=== PATIENT | female | born 2000 | race Asian ===

== ENCOUNTER 2024-02-19 10:55 | Emergency (ER) | payer OTHER, BC, SELFPAY ==
[2024-02-19 11:09] VITALS: BP 146/83; PULSE 76; RESP 20; TEMP 36.8; O2SAT 99; BMI 25.1
--- OUTSIDE RECORDS SUMMARY | 2024-02-19 12:02 | XMS_ITS | Encounter Summary ---
Author Name Unknown Organization [facility] Address [address] [place] [address] Care Team Providers Care Web Database Developer Name Role Phone Gabriella Powers M.D. Primary Care Provider [phone] Reason for Visit * Reason Comments Med Refill Encounter Details Date Type Department Care Team (Late st Contact Info) Description 01/14/2024 Refill [facility] Department of Family Medicine in [place], [place] [address] [place] [address] Gabriella Powers M.D. [address] [place] [address] Med Refill Social History Tobacco Use Types Packs/Day Years Used Date Smoking Tobacco: Never Smokeless Tobacco: Never Alcohol Use Standard Drinks/Week Comments Not Currently 0 (1 standard drink = 0.6 oz pur e alcohol) Humiliation, Afraid, Rape, and Kick questionnair e Answer Date Recorded Within the last year, have y ou been afraid of your partner or ex-partner? No 08/18/2022 Within the last year, have y ou been humiliated or emotionally abused in other ways by your partner or ex-partner? No Within the last year, have y ou been kicked, hit, slapped, or otherwise physically hurt by your partner or ex-partner? No 08/18/2022 Within the last year, have y ou been raped or forced to have any kind of sexual activity by your partner or ex-partner? No 08/18/2022 Social Connection and Isolat ion Panel [NHANES] Answer Date Recorded In a typical week, how many times do you talk on the phone with family, friends, or neighbors? More than three times a week 08/18/2022 How often do you get togethe r with friends or relatives? Twice a week 08/18/2022 How often do you attend chur or buddhism services? Never 08/18/2022 Do you belong to any clubs o r organizations such as gnosticist groups, unions, fraternal or athletic groups, or school groups? No 08/18/2022 How often do you attend meet ings of the clubs or organizations you belong to? Never 08/18/2022 Are you , , di vorced, , never , or living with a partner? Living with partner 08/18/2022 AUDIT-C Answer Date Recorded Q1: How often do you have a drink containing alc ohol? 2-3 times a week 08/18/2022 Q2: How many drinks containi ng alcohol do you have on a typical day when you are drinking? 1 or 2 08/18/2022 Q3: How often do you have si x or more drinks on one occasion? Never 08/18/2022 Overall Financial Resource Strain (CARDIA) Answe r Date Recorded How hard is it for you to pa y for the very basics like food, housing, medical care, and heating? Not very hard 10/01/2023 PHQ-2 Answer Date Recorded PHQ-2 Score 2 01/01/2024 [facility] - Occupational Stress Questionnaire Answer Date Recorded Do you feel stress - tense, restless, nervous, or anxious, or unable to sleep at night because your mind is troubled all the time - these days? Very much 08/18/2022 Exercise Vital Sign Answer Date Recorde d On average, how many days pe r week do you engage in moderate to strenuous exercise (like a brisk walk)? 4 days 10/01/2023 On average, how many minutes do you engage in exercise at this level? 30 min 10/01/2023 Hunger Vital Sign Answer Date Recorded Within the past 12 months, y ou worried that your food would run out before you got the money to buy more. Never true 10/01/20 23 Within the past 12 months, t he food you bought just didn't last and you didn't have money to get more. Never true 10/01/2023 PRAPARE - Transportation Answer Date Re corded In the past 12 months, has l ack of transportation kept you from medical appointments or from getting medications? No 09/21 In the past 12 months, has l ack of transportation kept you from meetings, work, or from getting things needed for daily living? No 10/01/2023 Depression Answer Date Recor ded PHQ-9 Total Score (max 27) 7 12/31 Nutrition Answer Date Recorded On average, how many serving s of fruits and vegetables do you eat per day (serving size is equal to 1 cup or approximately the size of a tennis ball)? 3-5 10/01/2023 Dental Answer Date Recorded Dental: Regular Dentist Yes 01/20/20 Employment Answer Date Recorded Employment status Employed and actively working without restrictions 10/01/2023 Housing Stability Answer Date Recorded What is your living situation today? I have a [facility] place to live 10/01/2023 Education Answer Date Recorded What is the highest level of school you have completed or the highest degree you have received? Some college, no degree 01/19/2022 Sex and Gender Information Value Date Recorded Sex Assigned at Female 08/18/2022 11:21 AM CDT Gender Identity Female 08/18/2022 11:21 AM CDT Sexual Orientation Straight 08/18/2022 11 :21 AM CDT documented as of this encounter Miscellaneous Notes * Telephone Encounter - Milagro Zambrano L.P.N. - 01/15/2024 3:28 PM CDT Recent Visits Date Type Provider Dept 01/02/24 Comprehensive Visit Gabriella Powers M.D. [facility] [place] Showing recent visits within past 365 days with a meds authorizing provider and meeting all other requirements Future Appointments No visits were found meeting these conditions. Showing future appointments within next 90 days with a meds authorizing provider and meeting all other requirements documented in this encounter Plan of Treatment Upcoming Encounters Date Type Department Care Team (Latest Contact Info) Description 04/22/2024 9:00 AM CDT Comprehensive Visit Department of Allergy in [place], [place] [address] [place] [phone] Andrés Camacho M.D. [address] [place] [address] Discharge Disposition: Home or Self Care documented as of this encounter Visit Diagnoses Diagnosis Acne documented in this encounter Additional Health Concerns Assessment Noted Time PHQ-9 Depression Total Score: 7 01/01/20 24 1:55 AM CDT documented as of this encounter Care Teams Web Database Developer Relationship Specialty Start Date End Date Gabriella Powers M.D. [address] [place] [address] PCP - General Family Medicine 08/21/22 documented as of this encounter
--- OUTSIDE RECORDS SUMMARY | 2024-02-19 12:02 | XMS_ITS ---
Author Name Unknown Organization [facility] Address [address] [place] [address] Care Team Providers Care Supervisor Engraving Name Role Phone Unavailable Unavailable Unavailable Surgery Details Not on file Complications Check Surgery Details section. Procedure Estimated Blood Loss Check Surgery Details section. Procedure Findings Check Surgery Details section. Procedure Specimens Taken Check Surgery Details section.
--- OUTSIDE RECORDS SUMMARY | 2024-02-19 12:02 | XMS_ITS | Encounter Summary ---
Author Name Unknown Organization [facility] Address [address] [place] [address] Care Team Providers Care Exposure Machine Operator Name Role Phone Gabriella Powers M.D. Primary Care Provider [phone] Encounter Details Date Type Department Care Team (Late st Contact Info) Description 12/18/2023 Patient Self-Triage [facility] Symptom Black Pickler, Provider Social History Tobacco Use Types Packs/Day Years [...] 08/18/2022 How often do you attend chur ch or baptist services? Never 08/18/2022 Do you belong to any clubs o r organizations such as baptism groups, unions, fraternal or athletic groups, or [...] 10/01/2023 PHQ-2 Answer Date Recorded PHQ-2 Score 1 11/29/2023 [facility] - Occupational Stress [...] Recor ded PHQ-9 Total Score (max 27) 5 11/29 Nutrition Answer Date Recorded On average, how [...] your living situation today? I have a [facility] place to live 10/01/2023 Education [...] AM CDT documented as of this encounter Plan of Treatment Upcoming Encounters Date Type Department Care Team (Latest Contact Info) Description 04/22/2024 9:00 AM CDT Comprehensive Visit Department of Allergy in [place] [address] [place] [address] Andrés Camacho M.D. [facility] [place] [address] Discharge Disposition: Home or Self Care documented as of this encounter Visit Diagnoses Not on filedocumented in this encounter Additional Health Concerns Assessment Noted Time PHQ-9 Depression Total Score: 5 11/29/19 24 7:55 AM FAN MAIL EDITOR documented as of this encounter Care Teams Exposure Machine Operator Relationship Specialty Start Date End Date Gabriella Powers M.D. ELIZABETHI: [phone] [address] [place] [address] PCP - General Family Medicine 08/21/22 documented as of this encounter
--- OUTSIDE RECORDS SUMMARY | 2024-02-19 12:02 | XMS_ITS | Encounter Summary ---
Author Name Unknown Organization [facility] Address [address] [place] [address] Care Team Providers Care Screenplay Writer Name Role Phone Gabriella Powers M.D. Primary Care Provider [phone] Encounter Details Date Type Department Care Team (Late st Contact Info) Description 12/18/2023 Patient Self-Triage CONNECTED CARE Symptom Duct Installer, Provider Social History Tobacco Use Types Packs/Day [...] often do you attend chur ch or shinto services? Never 08/18/2022 Do you belong to any clubs o r organizations such as adventism groups, unions, fraternal or athletic groups, or [...] Answer Date Recorded PHQ-2 Score 1 11/29/2023 [facility] - Occupational Stress [...] your living situation today? I have a [facility] place to live 10/01/2023 Education Answer [...] CDT Comprehensive Visit Department of Allergy in [place] [id number] [place] [address] Andrés Camacho M.D. [facility] [place] [address] Discharge Disposition: Home or Self Care documented as of this encounter Visit Diagnoses Not on filedocumented in this encounter Additional Health Concerns Assessment Noted Time PHQ-9 Depression Total Score: 5 11/29/19 24 7:55 AM CONSTRUCTION SUPERVISOR documented as of this encounter Care Teams Screenplay Writer Relationship Specialty Start Date End Date Gabriella Powers M.D. ELIZABETHI: [phone] [address] [place] [address] PCP - General Family Medicine 08/21/22 documented as of this encounter
--- OUTSIDE RECORDS SUMMARY | 2024-02-19 12:02 | XMS_ITS | Encounter Summary ---
Author Name Unknown Organization [facility] Address [address] [place] [address] Care Team Providers Care Lay Out Technician Name Role Phone Gabriella Powers M.D. Primary Care Provider Reason for Referral * Outpatient (Routine) - Authorized Specialty Diagnoses / Procedures Referred By Sylvie t Referred To Contact Dermatology Diagnoses Quita Tran APRN C.N.P., M.S.N. [address] [place] [phone] [facility] Referral ID Status Reason Start Date Expiration Date Visits Requested Visits Authorized [id number] Authorized Specialty Services Required 02/18/2024 08/19/2025 1 1 Reason for Visit * Reason Comments Gynecologic Exam Encounter Details Date Type Department Care Team (Latest Contact Info) Description 02/18/2024 1:30 PM CDT Office Visit Department of Obstetrics and Gynecology in [place], [place] [address] [place] [phone] Quiat Junior APRN, C.N.P., M.S.N. [address] [place] [phone] Preventive Gynecological Exam (Primary Dx); Screening For Venereal Disease; Acne Discharge Disposition: Home or Self Care Social History Tobacco Use Types Packs/Day Years [...] often do you attend chur ch or pentecostal services? Never 08/18/2022 Do you belong to any clubs o r organizations such as yazidi groups, unions, fraternal or athletic groups, or [...] Answer Date Recorded PHQ-2 Score 2 01/01/2024 [facility] - [...] your living situation today? I have a [facility] [place] place to live 10/01/2023 Education Answer Date [...] AM CDT documented as of this encounter Last Filed Vital Signs Vital Sign Reading Time Taken Comments Blood Pressure 118/62 02/18/2024 1:23 PM CDT Pulse - - Temperature - - Respiratory Rate - - Oxygen Saturation - - Inhaled Oxygen Concentration - - Weight 62.1 kg (136 lb 14.5 oz) 02/18/2024 1:23 PM CDT Height - - Body Mass Index 24.56 08/18/2022 11:13 AM CDT documented in this encounter Progress Notes * Quita Junior, JOE, C.N.P., M.S.N. - 02/18/2024 1:30 PM CDT SUBJECTIVE CHIEF COMPLAINT / REASON FOR VISIT Annual BUSINESS ACCOUNT MANAGER exam HISTORY OF PRESENT ILLNESS Radha Boyle is a 23 y.o. female here for an annual BUSINESS ACCOUNT MANAGER exam. Desires preventative health screening labs to be completed. She is using [facility] pills for contraceptive management and this is going well. Cycles are monthly and regular. She also is using the pill for acne control. It has been helpful but her acne is not controlled as best as she would like. She is open to a referral to Dermatology for further evaluation and management. Her pap smear is up to date and due 11/2024 She desires STD screening today. Asymptomatic. 1 partner within the past 12 months. Higher risk sexual behavior rico in 2021. Approximately 30 lifetime partners. Obstetrical History OB History Para Term AB Living 0 0 0 0 0 0 SAB IAB Ectopic Molar Multiple Live Births 0 0 0 0 0 0 Past Medical History: Diagnosis Date Acne Anxiety Generalized Disorder Asthma Mild Intermittent (HCC) Bipolar Disorder (HCC) Diagnosis from Teresa Olsen at [facility] Depressive Disorder History reviewed. No pertinent surgical history. Family History Problem Relation Name Age of Onset Tobacco abuse Father Hypertension Mother Kiran Jean Prediabetes Mother Kiran Jean Asthma Brother Paulo Boyle Social History Socioeconomic History Marital status: Single Highest education level: Some college, no degree Tobacco Use Smoking status: Never Smokeless tobacco: Never Vaping Use Vaping status: never used Substance and Sexual Activity Alcohol use: Not Currently Drug use: Not Currently Types: Marijuana Sexual activity: Yes Partners: Male control/protection: Condom, Pill Social Determinants of Health Food Insecurity: No Food Insecurity (10/01/2023) Hunger Vital Sign Worried About Running Out of Food in the Last Year: Never true Ran Out of Food in the Last Year: Never true Transportation Needs: No Transportation Needs (10/01/2023) PRAPARE - Transportation Lack of Transportation (Medical): No Lack of Transportation (Non-Medical): No Physical Activity: Insufficiently Active (10/01/2023) Exercise Vital Sign Days of Exercise per Week: 4 days Minutes of Exercise per Session: 30 min Intimate Partner Violence: Not At Risk (08/18/2022) Humiliation, Afraid, Rape, and Kick questionnaire Fear of Current or Ex-Partner: No Emotionally Abused: No Physically Abused: No Sexually Abused: No Housing Stability: Low Risk (10/01/2023) Housing Stability Housing: Living Situation: I have a steady place to live Medication and allergy list reviewed. Please click this encounter's hyperlink for reference REVIEW OF SYSTEMS Pertinent negatives and positives as noted in the HPI REVIEW OF SYSTEMS OBJECTIVE VITAL SIGNS Vitals: 02/18/24 1323 BP: 118/62 HT: -Wt 62.1 kg Body mass index is 24.56 kg/m??. PHYSICAL EXAM General: Patient???s eye contact is appropriate, physical appearance is neat, clean and dress is appropriate Breasts and Axillae: Breasts symmetric, no retractions, lesions, masses, tenderness. No nipple discharge noted. Axilla is negative Genitourinary: External genitalia clear of any lesions or swelling. Urethra without redness or swelling. Clitoris without clitoromegaly. Bartholin and Jeddo's glands nontender and nonpalpable. External rectal mucosa is appropriately colored with no lesions or masses. Speculum exam reveals mildly thicker white vaginal discharge in the vault. Cervix is normal and without lesions or erythema. On bimanual exam, uterus is small, round, mobile. No cervical motion tenderness or adnexal tenderness. Bladder is nontender Neurologic: Patient is alert and orientated x 3. Cranial nerves are grossly intact Senior Hadoop Developer for pelvic exam or qualifying procedure: Adelina Truong ASSESSMENT / PLAN Diagnosis Plan 1. Preventive Gynecological Exam Hemoglobin A1c Lipid Panel CBC with Differential, Blood 2. Screening For Venereal Disease Chlamydia / Gonorrhoeae Amplified RNA Syphilis Total Antibody with Reflex, Serum HIV-1/-2 Ag and Ab Screen, Plasma HCV Ab Scrn w/Reflex to HCV PCR, Serum 3. Acne Dermatology - General consult (clinic) norgestimate-ethinyl estradioL (Ortho Tri-Cyclen, 28,) 0.18 mg/0.215 mg/0.25 mg- 35 mcg (28) per tablet PATIENT EDUCATION Ready to learn, barriers to learning: none; learning preferences include listening. Overall, patient verbalizes understanding of the plan of care and offers no further questions or concerns Quita Junior APRN, C.N.Tirso., M.S.N. documented in this encounter Plan of Treatment Upcoming Encounters Date Type Department Care Team (Latest Contact Info) Description 04/22/2024 9:00 AM CDT Comprehensive Visit Department of Allergy in [address] [phone] Andrés Camacho M.D. [address] [place] [phone] Discharge Disposition: Home or Self Care Scheduled Referrals Name Type Priority Associated Diagnoses Order Schedule Dermatology - General consult (clinic) Outpatient Referral Routine Acne Expected: 02/18/2024, Expires: 05/19/2025 documented as of this encounter Procedures Procedure Name Priority Date/Time Associated Diagnosis Comments CBC WITH DIFFERENTIAL, B Routine 02/18/2024 2:14 PM CDT Preventive Gynecological Exam CHLAMYDIA/GONORRHO EAE AMPLIFIED RNA Routine 02/18/2024 1:57 PM CDT Screening For Venereal Disease documented in this encounter Results * (ABNORMAL) CBC with Differential, Blood (02/18/2024 2:14 PM CDT) Hemoglobin 15.1(H) 11.6 - 15.0 g/dL 02/18/2024 2:22 PM CDT [facility] Hematocrit 44.9 35.5 - 44.9 % 02/18/2024 2:22 PM CDT [facility] Erythrocytes 5.25(H) 3.92 - 5.13 x10(12)/L 02/18/2024 2:22 PM CDT [facility] MCV 85.5 78.2 - 97.9 fL 02/18/2024 2:22 PM CDT [facility] RBC Distrib Width 12.1(L) 12.2 - 16.1 % 02/18/2024 2:22 PM CDT [facility] Platelet Count 326 157 - 371 x10(9)/L 02/18/2024 2:22 PM CDT [facility] Leukocytes 8.3 3.4 - 9.6 x10(9)/L 02/18/2024 2:22 PM CDT [facility] Neutrophils 4.93 1.56 - 6.45 x10(9)/L 02/18/2024 2:22 PM CDT [facility] Lymphocytes 2.66 0.95 - 3.07 x10(9)/L 02/18/2024 2:22 PM CDT [facility] Monocytes 0.43 0.26 - 0.81 x10(9)/L 02/18/2024 2:22 PM CDT [facility] Eosinophils 0.20 0.03 - 0.48 x10(9)/L 02/18/2024 2:22 PM CDT [facility] Basophils 0.06 0.01 - 0.08 x10(9)/L 02/18/2024 2:22 PM CDT [facility] Blood (Blood, Venous) 02/18/2024 2:14 PM CDT 02/18/2024 2:18 PM CDT Quita Junior APRN, C.N.P., M.S.N. LAB BLO OD ADD-ON [facility] [address] [place] [address], [facility] MKTO [facility] in [place] [address] [place] [phone] * (ABNORMAL) Lipid Panel (02/18/2024 2:14 PM CDT) Triglycerides 160(H) mg/dL 02/18/2024 2:38 PM CDT [facility] Comment: ----REFERENCE VALUE---- Normal: <150 mg/dL Borderline High: 150-199 mg/dL High: 200-499 mg/dL Very High: > or =500 mg/dL Cholesterol, Total 169 mg/dL 2023 2:38 PM CDT [facility] Comment: ----REFERENCE VALUE---- Desirable: < 200 mg/dL Borderline High: 200 - 239 mg/dL High: > or = 240 mg/dL Cholesterol, LDL, Calculated 67 mg/dL 02/18/2024 2:38 PM CDT [facility] Comment: ----REFERENCE VALUE---- Desirable: <100 mg/dL Above Desirable: 100-129 mg/dL Borderline High: 130-159 mg/dL High: 160-189 mg/dL Very High: >=190 mg/dL ----ADDITIONAL INFORMATION---- LDL cholesterol calculated using the [place]/NIH equation. Cholesterol, HDL 76 >=50 mg/dL 02/18/20 2:38 PM CDT MKTO Cholesterol, Non-HDL, Calculated 93 mg/dL 02/18/2024 2:38 PM CDT [facility] Comment: ----REFERENCE VALUE---- Desirable: <130 mg/dL Above Desirable: 130-159 mg/dL Borderline High: 160-189 mg/dL High: 190-219 mg/dL Very High: > or =220 mg/dL Fasting (8 HR or more) No 02/18/2024 2:18 PM CDT [facility] Blood (Blood, Venous) 02/18/2024 2:14 PM CDT 02/18/2024 2:18 PM CDT Quita Junior APRN, C.N.P., M.S.N. LAB BLO OD ADD-ON [facility] [address] [place] [address], [facility] MKTO [facility] [place] [address] [place] [address] * Hemoglobin A1c (02/18/2024 2:14 PM CDT) Hemoglobin A1c, B 4.9 4.2 - 5.6 % 02/18/2024 2:34 PM CDT MKTO Blood (Blood, Venous) 02/18/2024 2:14 PM CDT 02/18/2024 2:18 PM CDT Quita Junior APRN, C.N.P., M.S.N. LAB BLO OD ADD-ON Performing Organization Address City/[facility]/ZIP Co de Phone Number [facility] [address] [place] [address], [place] [address] * HCV Ab Scrn w/Reflex to HCV PCR, Serum (02/18/2024 2:14 PM CDT) HCV Ab Screen, S Negative Negative 02/18/2024 5:46 PM CDT MKTO Blood (Blood, Venous) 02/18/2024 2:14 PM CDT 02/18/2024 2:18 PM CDT Narrative [facility] - 02/18/2024 5:46 PM CDT Specimen Information: Specimen ID: [id number] Specimen Type: Blood Specimen Collection Start Date: 02/18/2024 ??2:14 PM Specimen Received Date: 02/18/2024 ??2:18 PM Specimen ID: [id number] Specimen Type: Blood Specimen Collection Start Date: 02/18/2024 ??2:14 PM Specimen Received Date: 02/18/2024 ??2:18 PM Yani Coulter APRNNEddieP., M.S.N. LAB [facility] - BLOOD ORDERABLES Performing Organization Address City/[facility]/ZIP Co de Phone Number [facility] [address] [place] [address], [place] [address] * HIV-1/-2 Ag and Ab Screen, Plasma (02/18/2024 2:14 PM CDT) HIV Ag/Ab Screen, P Negative Negative 02/18/2024 9:08 PM CDT [facility] Comment: Negative result does not rule out HIV infection. If exposure to HIV infection occurred <14 days ago, contact the laboratory to request addition of HIV-1/HIV-2 RNA detection, Plasma (HIP12). HIV-1 p24 Ag Screen, P Negative Negative 02/18/2024 9:08 PM CDT [facility] Comment: Negative result does not rule out HIV infection. If exposure to HIV infection occurred <14 days ago, contact the laboratory to request addition of HIV-1/HIV-2 RNA detection, Plasma (HIP12). HIV-1 Ab Screen, P Negative Negative 02/18/2024 9:08 PM CDT [facility] Comment: Negative result does not rule out HIV infection. If exposure to HIV infection occurred <14 days ago, contact the laboratory to request addition of HIV-1/HIV-2 RNA detection, Plasma (HIP12). HIV-2 Ab Screen, P Negative Negative 02/18/2024 9:08 PM CDT [facility] Comment: Negative result does not rule out HIV infection. If exposure to HIV infection occurred <14 days ago, contact the laboratory to request addition of HIV-1/HIV-2 RNA detection, Plasma (HIP12). Blood (Blood, Venous) 02/18/2024 2:14 PM CDT 02/18/2024 6:17 PM CDT Quita Junior APRN, C.N.P., M.S.N. LAB [facility] - BLOOD ORDERABLES [facility] [address] [place] [phone], [facility] in [address] [address] * Syphilis Total Antibody with Reflex, Serum (02/18/2024 2:14 PM CDT) Syphilis Total Ab w/ Reflex Nonreactive Nonreactive 02/18/2024 9:08 PM CDT [facility] Comment: No serologic evidence of infection with T. pallidum (syphilis). ??Repeat testing may be considered in patients with suspected acute or primary syphilis in 2-4 weeks. For additional information on interpretation of the syphilis reverse algorithm and results, see: [email or web address] Blood (Blood, Venous) 02/18/2024 2:14 PM CDT 02/18/2024 6:17 PM CDT Quita Junior APRN, C.N.P., M.S.N. LAB BLO OD ADD-ON Performing Organization Address [facility] Co de Phone Number [facility] [address] [place] [phone], [facility] [place] [address] * Chlamydia / Gonorrhoeae Amplified RNA (02/18/2024 1:57 PM CDT) Source Swab, Vagina 02/18/2024 10:48 PM CDT [facility] Chlamydia trachomatis amplified RNA Negative Negative 02/18/2024 10:48 PM CDT MK[facility] Source Swab, Vagina 02/18/2024 10:48 PM CDT [facility] Neisseria gonorrhoeae amplified RNA Negative Negative 02/18/2024 10:48 PM CDT [facility] Swab (Vagina) 02/18/2024 1:5 7 PM CDT 02/18/2024 2:30 PM CDT Jazimn oCulter APRN.N.P., M.S.N. LAB [facility] - GENERAL ORDERABLES Performing Organization Address [facility]/ZIP Co de Phone Number [facility] [address] [place] [phone], [place] MKTO [address] [place] [phone] documented in this encounter Visit Diagnoses Diagnosis Preventive Gynecological Exam- Primary Screening For Venereal Disease Acne Screening For Venereal Disease Preventive Gynecological Exam documented in this encounter Additional Health Concerns Assessment Noted Time PHQ-9 Depression Total Score: 7 01/01/20 24 1:55 AM CDT documented as of this encounter Care Teams Lay Out Technician Relationship Specialty Start Date End Date Gabriella Powers M.D. NPNgoc: [phone] [address] [place] [phone] PCP - General Family Medicine 08/21/22 documented as of this encounter
--- OUTSIDE RECORDS SUMMARY | 2024-02-19 12:02 | XMS_ITS | Referral Summary ---
Author Name Unknown Organization [facility] Address [address] [place] [address] Care Team Providers Care Office Inspector Name Role Phone Gabriella Powers M.D. Primary Care Provider [phone] Source Comments Patient records contain information from all sites at [facility]. For routine questions regarding patient records, call [phone] during business hours, M-F 8:00 AM - 5:00 PM Central Time. Record requests for emergency care only can be directed to [phone] at any time.[facility] Encounters Date Type Department Care Team Description 02/18/2024 2:06 PM CDT - 02/18/2024 11:59 PM CDT Hospital Encounter Department of Laboratory Medicine in [address] [phone] Quita Junior APRN, C.N.P., M.S.N. Screening For Venereal Disease; Preventive Gynecological Exam Discharge Disposition: Home or Self Care 02/18/2024 1:30 PM CDT Office Visit Department of Obstetrics and Gynecology in [address] [phone] Quita Junior APRN, C.N.P., M.S.N. Preventive Gynecological Exam (Primary Dx); Screening For Venereal Disease; Acne Discharge Disposition: Home or Self Care 01/14/2024 Refill [facility] in [place], [place] [address] [place] [address] Gabriella Powers M.D. Med Refill 01/11/2024 8:00 AM CDT Telemedicine [facility] at [facility] in [place], [place] [address] [place] [address] Sharron Tran P.A.-C. Dermatitis Contact Due To Irritant (Primary Dx) 01/02/2024 8:30 AM CDT Comprehensive Visit [facility] in [place], [place] [address] [place] [address] Gabriella Powers M.D. Urticaria (Primary Dx); Encounter For COVID-19 Vaccine Immunization 12/18/2023 Patient Self-Triage [facility] Symptom Pumping Supervisor, Provider 12/18/2023 Patient Self-Triage [facility] Symptom Pumping Supervisor, Provider 12/18/2023 Patient Self-Triage [facility] Symptom Pumping Supervisor, Provider from Last 3 Months Allergies Active Allergy Reactions Criticality Noted Date Comments Chlorhexidine Rash Low 08/18/2022 Skin Protectants, Misc. Other (see comments) Medium Steri strips gets blisters Medications Medication Sig Dispensed Refills Start Date End Date Status hydrOXYzine (ATARAX) 25 mg tablet TAKE 1-2 TABLETS BY MOUTH EVERY DAY NEEDED FOR ANXIETY, PANIC 180 tablet 1 3 Active calcium carbonate-vitam in D3 (Calcium 600 + D,3,) 1,500 mg (600 mg calcium)-10 mcg (400 Unit) per tablet Take 1 tablet by mouth 2 (two) times a day with meals. 3 Active cartilage-colla mgv-zuk-oqmzri (Joint Health) 40-10-5-3.3 mg tablet Take 1 tablet by mouth daily. 3 Active mupirocin (BACTROBAN) 2 % ointment Apply 1 Application topically 2 (two) times a day. Apply to open areas on hands. 30 g 2 4 Active mometasone (ELOCON) 0.1 % ointment Apply 1 Application topically daily. Apply to itchy rash on hands prn. 45 g 1 4 Active tretinoin (RETIN-A) 0.05 % creamIndication s:Acne APPLY 1 APPLICATION TOPICALLY EVERY DAY AT BEDTIME 45 g 3 4 Active norgestimate-et hinyl estradioL (Ortho Tri-Cyclen, 28,) 0.18 mg/0.215 mg/0.25 mg-35 mcg (28) per tabletIndicatio ns:Acne Take 1 tablet by mouth daily. 84 tablet 4 4 Active norgestimate-et hinyl estradioL (Ortho Tri-Cyclen, 28,) 0.18 mg/0.215 mg/0.25 mg-35 mcg (28) per tabletIndicatio ns:Menorrhagia, Acne Take 1 tablet by mouth daily. 84 tablet 4 3 02/18/20 24 Discontinued(Reo rder) triamcinolone (KENALOG) 0.1 % cream APPLY TO AFFECTED AREA 1-2 TIMES DAILY NEEDED FOR NO LONGER THAN 2 WEEKS. AVOID FACE AND GROIN. 80 g 3 02/18/20 24 Discontinued Active Problems Problem Noted Date Diagnosed Date Mood Disorder 10/20/2022 Anxiety Generalized Disorder 04/21/2022 Resolved Problems Problem Noted Date Diagnosed Date Resolved Date Depression Major Recurrent Moderate 04/21/2022 12/13/2022 Bipolar Disorder 04/21/2022 10/20/2022 Immunizations Name Administration Dates Next Due 4vHPV (discontinued) 07/18/2012 9vHPV 12/15/2021,04/15/2020 DTaP (Infanrix, Tripedia) 12/26/2004,,2000,1999,2000 H1N1 All Forms 11/19/2009,09/06/2009 HepA Pediatric/Adolescent 11/19/2009,04/27/2008 HepB Pediatric/Adolescent 2000 HepB, Unspecified 08/14/2002,2000,05/22/20 00 Hib (PRP-T) (ACTHIB, HIBERIX) 2000, 000,2000 IPV 12/26/2004, 1,2000,1999 Influenza (IM) Preservative Free 08/06/2013 Influenza, Injectable, Mdck, Preservative Free, Quadrivalent 08/21/2021,09/20/2018 Influenza, Unspecified 08/21/2017,2011,09/05/2010,2008,09/16/2008,08/05/2007,10/03/2006,1 11/06/2005 MCV4 (Menactra)(Discontinued) 07/18/2012 MMR 12/26/2004,04/22/2001 PCV7 (discontinued) 10/28/2001,01/21/2001,2000 SARS-COV-2 (COVID-19) - MODE RNA (12 YEARS AND OLDER) [id number] 01/02/2024 SARS-COV-2 (COVID-19) - MODERNA(Discontinued) 12/09/2020,11/10/2020 SARS-COV-2 (COVID-19) - PFIZ ER BIVALENT TS(Discontinued)(12 YEARS OR OLDER) 10/19/2022 Tdap 08/18/2022,07/18/2012 RACHELLE 04/27/2008,04/22/2001 influenza vaccine quad (FLUZONE/FLUARIX) (6 months and older)(PF) 07/25/2023,07/25/2022,08/13/2015,2013 Social History Tobacco Use Types Packs/Day Years [...] How often do you attend chur or restorationism services? Never 08/18/2022 Do you belong to [...] Answer Date Recorded PHQ-2 Score 2 01/01/2024 [facility] - [...] your living situation today? I have a [facility] place to live 10/01/2023 Education Answer Date Recorded What is the highest level of school you have completed or the highest degree you have received? Some college, no degree 01/19/2022 Sex and Gender Information Value Date Recorded Sex Assigned at Female 08/18/2022 11:21 AM CDT Gender Identity Female 08/18/2022 11:21 AM CDT Sexual Orientation Straight 08/18/2022 11 :21 AM CDT Last Filed Vital Signs Vital Sign Reading Time Taken Comments Blood Pressure 118/62 02/18/2024 1:23 PM CDT Pulse 67 01/02/2024 8:25 AM CDT Temperature 36.6 ??C (97.9 ??F) 01/02/2024 8:25 AM CD T Respiratory Rate 14 10/19/2022 10:2 0 AM TORCH SHEARER Oxygen Saturation - - Inhaled Oxygen Concentration - - Weight 62.1 kg (136 lb 14.5 oz) 02/18/2024 1:23 PM CDT Height 159 cm (5' 2.6) 08/18/2022 11:1 3 AM CDT Body Mass Index 24.56 08/18/2022 11:13 AM CDT Plan of Treatment Upcoming Encounters Date Type Department Care Team (Latest Contact Info) Description 04/22/2024 9:00 AM CDT Comprehensive Visit Department of Allergy in [place], [place] [address] [place] [address] Andrés Camacho M.D. [address] [place] [address] Discharge Disposition: Home or Self Care Medical Devices Implanted Type Area Wastewater Superintendent Device Identifier Shelf Expiration Date Model / Serial / Lot Subdermal Contraceptive Implant- 2 Implanted:Qty: 1 on 11/17/2021 by Quita Junior APRN, C.N.P., M.S.N. Subdermal Contraceptive Implant Left: Arm Subdermal Contraceptive Implant- 2 Implanted:Qty: 1 on 11/17/2021 by Quita Junior APRN, C.N.P., M.S.N. Subdermal Contraceptive Implant Left: Arm [employer] 01/29/2024 / / [id number] Procedures Procedure Name Priority Date/Time Associated Diagnosis Comments LIPID PANEL, S Routine 02/18/2024 2:14 PM CDT Preventive Gynecological Exam HEMOGLOBIN A1C, B Routine 02/18/2024 2:1 4 PM CDT Preventive Gynecological Exam CBC WITH DIFFERENTIAL, B Routine 02/18/2024 2:14 PM CDT Preventive Gynecological Exam HCV AB SCRN W/REFLEX TO HCV PCR, S Routine 02/18/2024 2:14 PM CDT Screening For Venereal Disease HIV-1/-2 AG AND AB SCREEN, PLASMA Routine 02/18/2024 2:14 PM CDT Screening For Venereal Disease SYPHILIS TOTAL AB W/ REFLEX S Routine 02/18/2024 2:14 PM CDT Screening For Venereal Disease CHLAMYDIA/GONORRHOE AE AMPLIFIED RNA Routine 02/18/2024 1:57 PM CDT Screening For Venereal Disease THINPREP SCREEN HPV REFLEX Routine 12/15/2021 11:09 AM TORCH SHEARER Preventive Gynecological Exam from Last 3 Months or Most Recently Relevant to Health Maintenance Results * HIV-1/-2 Ag and Ab Screen, Plasma (02/18/2024 2:14 PM CDT) Pathologist [facility] HIV Ag/Ab Screen, P Negative Negative 02/18/2024 [...] LAB [facility]OLOG[facility] - BLOOD ORDERABLES [facility] [address] [place] [address], [facility] [address] [address] * (ABNORMAL) Lipid Panel (02/18/2024 2:14 PM [...] APRN, C.N.P., M.S.N. LAB BLO OD ADD-ON [facility] [address] [place] [address], [facility] MKTO [facility] in [place] [address] [place] [address] * Syphilis Total Antibody with Reflex, Serum (02/18/2024 2:14 PM CDT) Syphilis Total Ab w/ Reflex Nonreactive Nonreactive 02/18/2024 9:08 PM CDT [facility] Comment: No serologic evidence of infection with T. pallidum (syphilis). ??Repeat testing may be considered in patients with suspected acute or primary syphilis in 2-4 weeks. For additional information on interpretation of the syphilis reverse algorithm and results, see: [email or web address] Blood (Blood, Venous) 02/18/2024 2:14 PM CDT 02/18/2024 6:17 PM CDT Quita Junior APRN C.N.P., M.S.N. LAB BLO OD ADD-ON [facility] [address] [place] [address], [facility] in [address] [address] * HCV Ab Scrn w/Reflex to HCV PCR, Serum (02/18/2024 2:14 PM CDT) HCV Ab Screen, S Negative Negative 02/18/2024 5:46 PM CDT [facility] Blood (Blood, Venous) 02/18/2024 2:14 PM CDT 02/18/2024 2:[address] [facility] - 02/18/2024 5:46 PM CDT Specimen Information: Specimen ID: [id number] Specimen Type: Blood Specimen Collection Start Date: 02/18/2024 ??2:14 PM Specimen Received Date: 02/18/2024 ??2:18 PM Specimen ID: [id number] Specimen Type: Blood Specimen Collection Start Date: 02/18/2024 ??2:14 PM Specimen Received Date: 02/18/2024 ??2:18 PM Quita Junior APRN, C.N.P., M.S.N. LAB [facility]BIOLOGY - BLOOD ORDERABLES [facility] [address] [place] [address], [facility] MKTO [facility] [place] [address] [place] [address] * (ABNORMAL) CBC with Differential, Blood (02/18/2024 [...] 2:14 PM CDT 02/18/2024 2:18 PM CDT Jazmin Coulter APRN.N.Tirso., M.S.N. LAB BLO OD ADD-ON Performing Organization Address City/[facility]/ZIP Co de Phone Number [facility] [address] [place] [address], [place] [address] * Hemoglobin A1c (02/18/2024 2:14 PM CDT) Hemoglobin A1c, B 4.9 4.2 - 5.6 % 02/18/2024 2:34 PM CDT [facility] Blood (Blood, Venous) 02/18/2024 2:14 PM CDT 02/18/2024 2:18 PM CDT Jazmin Coulter APRN.N.P., M.S.N. LAB BLO OD ADD-ON Performing Organization Address City/[facility] Co de Phone Number [facility] [address] [place] [address] * Chlamydia / Gonorrhoeae Amplified RNA (02/18/2024 1:57 PM CDT) Source Swab, Vagina 02/18/2024 10:48 PM CDT MKTO Chlamydia trachomatis amplified RNA Negative Negative 02/18/2024 10:48 PM CDT MK[facility] Source Swab, Vagina 02/18/2024 10:48 PM CDT [facility] Neisseria gonorrhoeae amplified RNA Negative Negative 02/18/2024 10:48 PM CDT [facility] Swab (Vagina) 02/18/2024 1:5 7 PM CDT 02/18/2024 2:30 PM CDT Quita Junior APRN, C.N.P., M.S.N. LAB JUAN LUIS ROBIOLOGY - GENERAL ORDERABLES [facility] [address] [place] [address], [place] [facility] [address] [facility] [address] [place] [address] * ThinPrep Screen HPV Reflex (12/15/2021 11:09 AM TORCH SHEARER) 12/21/2021 8:00 AM TORCH SHEARER [facility] Report electronically signed by Oumar Velazquez MD I verify that I have examined all relevant slides/materials for the specimen(s) and rendered or confirmed the diagnosis. 12/21/2021 8:00 AM TORCH SHEARER [facility] Gross Description Received specimen in a ThinPrep vial. 12/21/2021 8:00 AM TORCH SHEARER [facility] Pap Test Source Cervical/Endocervi monique 12/21/2021 8:00 AM TORCH SHEARER [facility] Clinical History first pap 12/22/19 8:00 AM TORCH SHEARER [facility] Hormone Therapy/Contracep tives None/Not known 12/21/2021 8:00 AM TORCH SHEARER [facility] Interpretation Cervical/Endocervi monique ??(ThinPrep): Satisfactory for Evaluation Negative for Intraepithelial Lesion or Malignancy Reactive cellular changes associated with: ? Reparative or inflammatory changes 12/21/2021 8:00 AM TORCH SHEARER [facility] Varies (Cervix/Endocerv ix) 12/15/2021 11:09 AM TORCH SHEARER 12/16/2021 6:54 AM TORCH SHEARER Quita Junior APRN, C.N.P., M.S.N. LAB PAP PATHDX ORDERABLES [facility] [address] [place] [address], [place] [facility] [address] [place] [address] from Last 3 Months or Most Recently Relevant to Health Maintenance Care Teams Office Inspector Relationship Specialty Start Date End Date Gabriella Powers M.D. [address] [place] [address] [phone] PCP - General Family Medicine 08/21/22
--- OUTSIDE RECORDS SUMMARY | 2024-02-19 12:02 | XMS_ITS | Encounter Summary ---
Author Name Unknown Organization [facility] Address [address] [place] [address] Care Team Providers Care Hot Die Press Operator Name Role Phone Gabriella Powers M.D. Primary Care Provider [phone] Reason for Referral * Outpatient (Routine) - Authorized Specialty Diagnoses / Procedures Referred By Sylvie t Referred To Contact Allergy and Immunology Diagnoses Urticaria Gabriella Powers M.D. [address] [place] [address] [phone] [facility] Referral ID Status Reason Start Date Expiration Date Visits Requested Visits Authorized [id number] Authorized Specialty Services Required 01/02/2024 07/03/2025 1 1 Reason for Visit * Reason Comments unexplained rashes Encounter Details Date Type Department Care Team (Latest Contact Info) Description 01/02/2024 8:30 AM CDT Comprehensive Visit [facility] in [place], [place] [address] [place] [address] [phone] Gabriella Powers M.D. [address] [phone] Urticaria (Primary Dx); Encounter For COVID-19 Vaccine Immunization Social History Tobacco Use Types Packs/Day Years [...] often do you attend chur ch or sabianism services? Never 08/18/2022 Do you belong to any clubs o r organizations such as restorationist groups, unions, fraternal or athletic groups, or [...] Answer Date Recorded PHQ-2 Score 2 01/01/2024 [facility] - Occupational Stress Questionnaire Answer Date Recorded [...] Sign Reading Time Taken Comments Blood Pressure 119/77 01/02/2024 8:25 AM CDT Pulse 67 01/02/2024 8:25 AM CDT Temperature 36.6 ??C (97.9 ??F) 01/02/2024 8:25 AM CD T Respiratory Rate - - Oxygen Saturation - - Inhaled Oxygen Concentration - - Weight 60.6 kg (133 lb 8 oz) 01/02/2024 8:25 AM CDT Height - - Body Mass Index 23.95 08/18/2022 11:13 AM CDT documented in this encounter Progress Notes * Gabriella Powers M.D. - 01/02/2024 8:30 AM CDT SUBJECTIVE CHIEF COMPLAINT / REASON FOR VISIT unexplained rashes HISTORY OF PRESENT ILLNESS Radha Boyle is a 23 y.o. female who presents to the clinic for the above concerns. Patient reports rashes that started in the fall. Rashes come and go and are itchy. Denies any new skin products, soaps, detergents, medications or exposures. She switched to all free and Clear laundry detergent without any improvement in symptoms. She takes OTC antihistamines that alleviate the itching. No other related symptoms. No other acute concerns for today. The following portions of the patient's history were reviewed and updated as appropriate: allergies, current medications, family history, medical history, social history, surgical history and problemlist. REVIEW OF SYSTEMS Per HPI. All others negative at this time. OBJECTIVE VITAL SIGNS BP 119/77 (BP Location: Right arm, Cuff Size: Regular) Pulse 67 Temp 36.6 ??C (Temporal) Wt 60.6 kg BMI 23.95 kg/m?? PHYSICAL EXAMINATION Constitutional General: She is not in acute distress. Skin Comments: No evidence of urticaria at this time Neurological Mental Status: She is alert. ASSESSMENT / PLAN #1 Urticaria -patient did not have a rash to examine today -she has had it intermittently and showed me pictures on her phone; some of the pictures appear to be hives -advised on continuing OTC antihistamines p.r.n. for symptomatic relief -placed referral to Allergy/ immunology for allergy testing and further management - Allergy and Immunology - General consult (clinic); Future; Expected date: 01/02/2024 #2 Encounter For COVID-19 Vaccine Immunization -updated COVID vaccine - SARS-COV-2 (COVID-19) - MODERNA (12 years and older) Patient verbalized understanding and agreement with the plan of care. All questions and concerns were addressed. Gabriella Powers MD documented in this encounter Plan of Treatment Upcoming Encounters Date Type Department Care Team (Latest Contact Info) Description 04/22/2024 9:00 AM CDT Comprehensive Visit Department of Allergy in [place], [place] [address] [place] [phone] Andrés Camacho M.D. [address] [place] [phone] Discharge Disposition: Home or Self Care Scheduled Referrals Name Type Priority Associated Diagnoses Order Schedule Allergy and Immunology - General consult (clinic) Outpatient Referral Routine Urticaria Expected: 01/02/2024 (Approximate), Expires: 04/03/2025 documented as of this encounter Visit Diagnoses Diagnosis Urticaria- Primary Encounter For COVID-19 Vaccine Immunization documented in this encounter Additional Health Concerns Assessment Noted Time PHQ-9 Depression Total Score: 7 01/01/20 24 1:55 AM CDT documented as of this encounter Care Teams Hot Die Press Operator Relationship Specialty Start Date End Date Gabriella Powers M.D. [address] [place] [phone] PCP - General Family Medicine 08/21/22 documented as of this encounter
--- OUTSIDE RECORDS SUMMARY | 2024-02-19 12:02 | XMS_ITS | Encounter Summary ---
Author Name Unknown Organization [facility] Address [address] [place] [address] Care Team Providers Care Ambulatory Technologist Name Role Phone Gabriella Powers M.D. Primary Care Provider [phone] Encounter Details Date Type Department Care Team (Late st Contact Info) Description 01/11/2024 8:00 AM CDT Telemedicine [facility] Express Care at [facility] in [place], [place] [address] [place] [phone] Sharron Tran, PEddieAEddie-CEddie [address] [place] [phone] Dermatitis Contact Due To Irritant (Primary Dx) Social History Tobacco Use Types Packs/Day Years [...] often do you attend chur ch or episcopalian services? Never 08/18/2022 Do you belong to any clubs o r organizations such as caodaism groups, unions, fraternal or athletic groups, or [...] Answer Date Recorded PHQ-2 Score 2 01/01/2024 [facility] Health - Occupational [...] money to buy more. Never true 10/01/20 Within the past 12 months, t he [...] your living situation today? I have a [facility] place to live 10/01/2023 Education Answer [...] AM CDT documented as of this encounter Progress Notes * Sharron Tran P.A.-C. - 01/11/2024 8:00 AM CDT Telemedicine Visit The patient was present for a consult via real-time audio/video technology by Sharron Tran P.A.-C., [facility] Pinto on 01/11/2024. SUBJECTIVE CHIEF COMPLAINT/REASON FOR VISIT No chief complaint on file. Radha is a 23 y.o. female who requested evaluation of Minor skin infection. A video visit was conducted this morning with the patient from the [facility] located in [place], [place]. The patient states she has had pruritic rash involving her hands since approximately the fall of 2022. The rash has waxed and waned. When it flares, she hasbeen applying Kenalog cream which she was prescribed. She is concerned about how often she has usedthis cream; she will use it daily for awhile and then has taken breaks from the cream for a couple of weeks. The rash continues to be pruritic. Now in the past couple of days a change has occurred inthat there are some small open areas of her skin with weeping she states. She does not describe anypurulent drainage but rather serous drainage. She has now begun applying zinc oxide cream to her hands. She is particularly bothered by her right 3rd finger which has rash and is extremely pruritic. She was evaluated by her PCP on 01/02/2024 but states she did not have the open areas of rash on herhands at that time. She attributes this ongoing rash on her hands to the excessive handwashing she does at her job at the [employer] where she started 2 years ago. 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 These are latex free. She tries to moisturize her hands well. REVIEW OF SYSTEMS: Constitutional: - Negative for fever. Skin: Positive for skin rash (localized to hands). MEDICAL HISTORY Reviewed briefly. ALLERGIES/CONTRAINDICATIONS Reviewed briefly. MEDICATIONS Reviewed. OBJECTIVE VITAL SIGNS This was a video encounter and no vitals completed. Home vital signs reviewed with the patient if available PHYSICAL EXAMINATION Constitutional General: She is not in acute distress. Appearance: She is not ill-appearing or toxic-appearing. Pulmonary Effort: Pulmonary effort is normal. No respiratory distress. Skin Comments: Exam is limited due to this being a video visit today. On the dorsum of the patient's hands, she has a couple of patches of rash which appear dry and mildly inflamed. I do notice that she has a few open areas but I do not see any purulent drainage or excessive erythema indicating a bacterial infection at this time. She has also smaller areas on the dorsum of her wrists bilaterally. Her left fingers are clear but she is bothered by her right 3rd finger which has the same dry pruritic eczematous rash. Along her right finger she also states there are some open areas which are draining serous drainage. Neurological Mental Status: She is alert and oriented to person, place, and time. ASSESSMENT / PLAN Irritant contact dermatitis involving dorsum of hands and right 3rd finger. I am concerned that the patient may have a secondary bacterial infection involving her right 3rd finger and therefore I prescribed cephalexin 500 mg 3 times a day for 7 days as well as Bactroban ointment. Once the open areas are healed, she can then focus on keeping her hands well moisturized with Vaseline at night and Vanicream during the day. For exacerbations of the rash, I also prescribed mometasone ointment which she can use for 5-7 days for flare-ups of the rash on her hands. Stressed to her that if there is a way she could avoid the frequent exposure to the harsh hand soap and sanitizers at work, that would be very helpful. Suggested she make a derm appointment as well. She had no fur ther questions at this time. Return to Express Care as needed. @[email or web address]@ Consult conducted via real-time audio/video technology by Sharron Tran P.A.-C. in [facility], Bob Pinto to the patient in Patient's Home Consult conducted via real-time video technology by Svitlana Wilkes in [facility]-Bob Pinto to the patient Radha Boyle on 01/11/2024. I personally spent a total of 15 minutes in hwo-hljw-qh-face video encounter performing a review ofthe record and/or discussion with the patient/caregiver as described above. The majority of the time was spent in the counseling and coordination of care. Sharron Tran P.A.-C. documented in this encounter Plan of Treatment Upcoming Encounters Date Type Department Care Team (Latest Contact Info) Description 04/22/2024 9:00 AM CDT Comprehensive Visit Department of Allergy in [address] [phone] Andrés Camacho M.D. [address] [place] [address] Discharge Disposition: Home or Self Care documented as of this encounter Visit Diagnoses Diagnosis Dermatitis Contact Due To Irritant- Primary documented in this encounter Additional Health Concerns Assessment Noted Time PHQ-9 Depression Total Score: 7 01/01/20 24 1:55 AM CDT documented as of this encounter Care Teams Ambulatory Technologist Relationship Specialty Start Date End Date Gabriella Powers M.D. [address] [place] [address] PCP - General Family Medicine 08/21/22 documented as of this encounter
--- OUTSIDE RECORDS SUMMARY | 2024-02-19 12:02 | XMS_ITS | Encounter Summary ---
Author Name Unknown Organization [facility] Address [address] [place] [address] Care Team Providers Care Food And Beverage Order Clerk Name Role Phone Gabriella Powers M.D. Primary Care Provider [phone] Encounter Details Date Type Department Care Team (Latest Contact Info) Description 02/18/2024 2:06 PM CDT - 02/18/2024 11:59 PM CDT Hospital Encounter Department of Laboratory Medicine in [place], [place] [address] [place] [phone] Quita Junior, JOE, C.N.P., M.S.N. [address] [place] [phone] Screening For Venereal Disease; Preventive Gynecological Exam Discharge Disposition: Home or Self Care Social [...] How often do you attend chur or jew services? Never 08/18/2022 Do you belong to [...] Answer Date Recorded PHQ-2 Score 2 01/01/2024 [facility] - Occupational Stress Questionnaire Answer Date [...] your living situation today? I have a [facility] place to live 10/01/2023 Education Answer [...] AM CDT documented as of this encounter Medications at Time of Discharge Medication Sig Dispensed Refills Start Date End Date calcium carbonate-vitamin D3 (Calcium 600 + D,3,) 1,500 mg (600 mg calcium)-10 mcg (400 Unit) per tablet Take 1 tablet by mouth 2 (two) times a day with meals. 05/14/2023 bcpsrhasw-slkpafpa-wni -hyalur (Joint Health) 40-10-5-3.3 mg tablet Take 1 tablet by mouth daily. 05/06/2023 hydrOXYzine (ATARAX) 25 mg tablet TAKE 1-2 TABLETS BY MOUTH EVERY DAY NEEDED FOR ANXIETY, PANIC 180 tablet 1 01/24/2023 mometasone (ELOCON) 0.1 % ointment Apply 1 Application topically daily. Apply to itchy rash on hands prn. 45 g 1 01/11/2024 mupirocin (BACTROBAN) 2 % ointment Apply 1 Application topically 2 (two) times a day. Apply to open areas on hands. 30 g 2 01/11/2024 norgestimate-ethinyl estradioL (Ortho Tri-Cyclen, 28,) 0.18 mg/0.215 mg/0.25 mg-35 mcg (28) per tabletIndications:Acne Take 1 tablet by mouth daily. 84 tablet 4 02/18/2024 tretinoin (RETIN-A) 0.05 % creamIndications:Acne APPLY 1 APPLICATION TOPICALLY EVERY DAY AT BEDTIME 45 g 3 01/15/2024 documented as of this encounter Plan of Treatment Upcoming Encounters Date Type Department Care Team (Latest Contact Info) Description 04/22/2024 9:00 AM CDT Comprehensive Visit Department of Allergy in [address] [phone] Andrés Camacho M.D. [address] [place] [phone] Discharge Disposition: Home or Self Care documented as of this encounter Procedures Procedure Name Priority Date/Time Associated Diagnosis Comments HIV-1/-2 AG AND AB SCREEN, PLASMA Routine 02/18/2024 2:14 PM CDT Screening For Venereal Disease LIPID PANEL, S Routine 02/18/2024 2:14 PM CDT Preventive Gynecological Exam SYPHILIS TOTAL AB W/ REFLEX S Routine 02/18/2024 2:14 PM CDT Screening For Venereal Disease HCV AB SCRN W/REFLEX TO HCV PCR, S Routine 02/18/2024 2:14 PM CDT Screening For Venereal Disease HEMOGLOBIN A1C, B Routine 02/18/2024 2:1 4 PM CDT Preventive Gynecological Exam documented in this encounter Results * (ABNORMAL) Lipid Panel (02/18/2024 2:14 PM [...] LAB BLO OD ADD-ON Performing Organization Address [facility]/ZIP Co de Phone Number [facility] [address] [place] [address] * Hemoglobin A1c (02/18/2024 2:14 PM CDT) Hemoglobin A1c, B 4.9 4.2 - 5.6 % 02/18/2024 2:34 PM CDT MKTO Blood (Blood, Venous) 02/18/2024 2:14 PM CDT 02/18/2024 2:18 PM CDT Quita Junior APRN, C.N.P., M.S.N. LAB BLO OD ADD-ON Performing Organization Address [facility] Co de Phone Number [facility] [address] [place] [address] * HCV Ab Scrn w/Reflex to HCV PCR, Serum (02/18/2024 2:14 PM CDT) HCV Ab Screen, S Negative Negative 02/18/2024 5:46 PM CDT [facility] Blood (Blood, Venous) 02/18/2024 2:14 PM CDT 02/18/2024 2:18 PM CDT Narrative [facility] - 02/18/2024 5:46 PM CDT Specimen Information: Specimen ID: [id number] Specimen Type: Blood Specimen Collection Start Date: 02/18/2024 ??2:14 PM Specimen Received Date: 02/18/2024 ??2:18 PM Specimen ID: [id number] Specimen Type: Blood Specimen Collection Start Date: 02/18/2024 ??2:14 PM Specimen Received Date: 02/18/2024 ??2:18 PM Quita Junior APRN, C.N.P., M.S.N. LAB [facility] - BLOOD ORDERABLES [facility] [address] [place] [address], [place] MKTO [facility] in [place] [address] [place] [address] * HIV-1/-2 Ag and Ab Screen, Plasma [...] 2:14 PM CDT 02/18/2024 6:17 PM CDT Jazmin Coulter APRN.N.P., M.S.N. LAB J[facility]IS ROBIOLOGY - BLOOD ORDERABLES [facility] [address] [place] [address], [facility] in [address] [address] * Syphilis Total Antibody with Reflex, Serum (02/18/2024 2:14 PM CDT) Syphilis Total Ab w/ Reflex Nonreactive Nonreactive 02/18/2024 9:08 PM CDT [facility] Comment: No serologic evidence of infection with T. pallidum (syphilis). ??Repeat testing may be considered in patients with suspected acute or primary syphilis in 2-4 weeks. For additional information on interpretation of the syphilis reverse algorithm and results, see: [email or web address] Blood (Blood, Venous) 02/18/2024 2:14 PM CDT 02/18/2024 6:17 PM CDT Quita Junior APRN C.N.P., M.S.N. LAB BLO OD ADD-ON [facility] [address] [address], [facility] in [address] [address] documented in this encounter Visit Diagnoses Diagnosis Screening For Venereal Disease Preventive Gynecological Exam documented in this encounter Additional Health Concerns Assessment Noted Time PHQ-9 Depression Total Score: 7 01/01/20 24 1:55 AM CDT documented as of this encounter Care Teams Food And Beverage Order Clerk Relationship Specialty Start Date End Date Gabriella Powers M.D. [address] [place] [address] PCP - General Family Medicine 08/21/22 documented as of this encounter
--- OUTSIDE RECORDS SUMMARY | 2024-02-19 12:02 | XMS_ITS | Clinical Summary ---
Author Name Unknown Organization [facility] Address [address] [place] [address] Care Team Providers Care Public Health Dentist Name Role Phone Gabriella Powers M.D. Primary Care Provider [phone] Source Comments Patient records contain information from all sites at [facility]. For routine questions regarding patient records, call [phone] during business hours, M-F 8:00 AM - 5:00 PM Central Time. Record requests for emergency care only can be directed to [phone] at any time.[facility] Allergies Active Allergy Reactions Criticality Noted Date [...] a day with meals. 3 Active cartilage-colla pho-qbn-naczgx (Joint Health) 40-10-5-3.3 mg tablet Take 1 [...] Moderate 04/21/2022 12/13/2022 Bipolar Disorder 04/21/2022 10/20/2022 Encounters Date Type Department Care Team Description 02/18/2024 2:06 PM CDT - 02/18/2024 11:59 PM CDT Hospital Encounter Department of Laboratory Medicine in [address] [phone] Quita Junior APRN, C.N.P., M.S.N. Screening For Venereal Disease; Preventive Gynecological Exam Discharge Disposition: Home or Self Care 02/18/2024 1:30 PM CDT Office Visit Department of Obstetrics and Gynecology in [address] [phone] Quita Junior APRN, C.N.P., M.S.N. Preventive Gynecological Exam (Primary Dx); Screening For Venereal Disease; Acne Discharge Disposition: Home or Self Care 01/14/2024 Refill [facility] of Family Medicine in [place], [place] [address] [place] [address] Gabriella Powers M.D. Med Refill 01/11/2024 8:00 AM CDT Telemedicine [facility] Express Care at [facility] in [place], [place] [address] [facility] [place] [address] Sharron Tran P.A.-C. Dermatitis Contact Due To Irritant (Primary Dx) 01/02/2024 8:30 AM CDT Comprehensive Visit [facility] in [place], [place] [address] [place] [address] Gabriella Powers M.D. Urticaria (Primary Dx); Encounter For COVID-19 Vaccine Immunization 12/18/2023 Patient Self-Triage [facility] Symptom Principal Librarian, Provider 12/18/2023 Patient Self-Triage [facility] Symptom Principal Librarian, Provider 12/18/2023 Patient Self-Triage [facility] Symptom Principal Librarian, Provider from Last 3 Months Immunizations Name Administration Dates Next Due 4vHPV [...] - MODE RNA (12 YEARS AND OLDER) [id number] 01/02/2024 SARS-COV-2 (COVID-19) - MODERNA(Discontinued) 12/09/2020,11/10/2020 SARS-COV-2 (COVID-19) - PFIZ ER BIVALENT TS(Discontinued)(12 YEARS OR OLDER) 10/19/2022 Tdap 08/18/2022,07/18/2012 RACHELLE 04/27/2008,04/22/2001 influenza vaccine quad (FLUZONE/FLUARIX) (6 months and older)(PF) 07/25/2023,07/25/2022,08/13/2015,2013 Family History Medical History Relation Name Comments Asthma Brother Paulo Boyle Tobacco abuse Father Hypertension Mother Kiran Jean Prediabetes Mother Kiran Jean Relation Name Status Comments Brother Paulo Boyle Alive Father Alive Maternal Grandfather Alive Maternal Grandmother Alive Mother Kiran Jean Alive Paternal Grandfather Alive Paternal Grandmother Alive Sister Alive Social History Tobacco Use Types Packs/Day Years [...] How often do you attend chur or evangelical services? Never 08/18/2022 Do you belong to any clubs o r organizations such as moravian groups, unions, fraternal or athletic groups, or [...] Answer Date Recorded PHQ-2 Score 2 01/01/2024 [facility] of Occupat ional Health - Occupational Stress [...] your living situation today? [facility] 10/01/2023 Education Answer Date [...] Respiratory Rate 14 10/19/2022 10:2 0 AM CHILDREN'S ENTERTAINER Oxygen Saturation - - Inhaled Oxygen Concentration - - Weight 62.1 kg (136 lb 14.5 oz) 02/18/2024 1:23 PM CDT Height 159 cm (5' 2.6) 08/18/2022 11:1 3 AM CDT Body Mass Index 24.56 08/18/2022 11:13 AM CDT Plan of Treatment Upcoming Encounters Date Type Department Care Team (Latest Contact Info) Description 04/22/2024 9:00 AM CDT Comprehensive Visit Department of Allergy in [place], [place] [address] [place] [phone] Andrés Camacho M.D. [address] [place] [address] Discharge Disposition: Home or Self Care Health Maintenance Due Date Last Done Comments Cervical Cancer Screening 12/15/2024 12/15/2021 Chlamydia and Gonorrhea Screening 02/17/2025 02/18/2024, 01/11/2023, 12/15/2021, Additional history exists DTaP,Tdap,and Td Vaccines (8 - Td or Tdap) 08/18/2032 08/18/2022, 07/18/2012, 12/26/2004, Additional history exists Pneumococcal vaccine (0-64 years) Aged Out 10/28/2001, 01/21/2001, 2000 No longer eligible based on patient's age to complete this topic Hepatitis B Vaccines Completed 08/14/2002, 2000, 2000, Additional history exists HPV Vaccines Completed 12/15/2021, 03/23, 07/18/2012 Influenza Vaccine Completed 07/25/2023, , 08/21/2021, Additional history exists COVID-19 Vaccine Completed 01/02/2024, , 08/21/2021, Additional history exists Depression Screening (Annual PHQ-2) Completed 01/02/2024, 01/01/2024 HIV Screening Completed 02/18/2024, 12/21, 12/15/2021 Hepatitis C Screening Completed 02/18/2024, 022 Medical Devices Implanted Type Area Health And Safety Consultant Device Identifier Shelf Expiration Date Model / Serial / Lot Subdermal Contraceptive Implant- 2 Implanted:Qty: 1 on 11/17/2021 by Quita Junior APRN, C.N.P., M.S.N. Subdermal Contraceptive Implant Left: Arm Subdermal Contraceptive Implant- 2 Implanted:Qty: 1 on 11/17/2021 by Quita Junior APRN, C.N.P., M.S.N. Subdermal Contraceptive Implant Left: Arm No [employer] 01/29/2024 / / [id number] Procedures Procedure Name Priority Date/Time Associated Diagnosis [...] SCREEN HPV REFLEX Routine 12/15/2021 11:09 AM CHILDREN'S ENTERTAINER Preventive Gynecological Exam from Last 3 Months [...] CDT Quita Junior APRN C.N.P., M.S.N. LAB JUAN LUIS ROBIOLOGY - BLOOD ORDERABLES [facility] [address] [place] [address], [facility] in [address] [address] * (ABNORMAL) Lipid Panel (02/18/2024 2:14 PM [...] or more) No 02/18/2024 2:18 PM CDT MK Blood (Blood, Venous) 02/18/2024 2:14 PM CDT 02/18/2024 2:18 PM CDT Quita Junior APRN, C.N.P., M.S.N. LAB BLO OD ADD-ON [facility] [address] [place] [address], [facility] MKTO [place] [address] * Syphilis Total Antibody with Reflex, Serum (02/18/2024 2:14 PM CDT) Syphilis Total Ab w/ Reflex Nonreactive Nonreactive 02/18/2024 9:08 PM CDT [facility] Comment: No serologic evidence of infection with T. pallidum (syphilis). ??Repeat testing may be considered in patients with suspected acute or primary syphilis in 2-4 weeks. For additional information on interpretation of the syphilis reverse algorithm and results, see: [email or web address] Blood (Blood, Venous) 02/18/2024 2:14 PM CDT 02/18/2024 6:17 PM CDT Quita Junior APRN, C.N.P., M.S.N. LAB BLO OD ADD-ON Performing Organization Address [facility]/ZIP Co de Phone Number [facility] [address] [place] [address], [facility] in [address] [address] * HCV Ab Scrn w/Reflex to HCV PCR, Serum (02/18/2024 2:14 PM CDT) HCV Ab Screen, S Negative Negative 02/18/2024 5:46 PM CDT [facility] Blood (Blood, Venous) 02/18/2024 2:14 PM CDT 02/18/2024 2:18 PM CDT Narrative [facility] - 02/18/2024 5:46 PM CDT Specimen Information: Specimen ID: [id number] Specimen Type: Blood Specimen Collection Start Date: 02/18/2024 ??2:14 PM Specimen Received Date: 02/18/2024 ??2:18 PM Specimen ID: [id number] Specimen Type: Blood Specimen Collection Start Date: 02/18/2024 ??2:14 PM Specimen Received Date: 02/18/2024 ??2:18 PM Quita Junior APRN, C.N.P., M.S.N. LAB JUAN LUIS ROBIOLOGY - BLOOD ORDERABLES Performing Organization Address [facility]/ZIP Co de Phone Number [facility] [address] [place] [address], [facility] MKTO [facility] in [place] [address] [place] [address] * (ABNORMAL) CBC with Differential, Blood (02/18/2024 [...] APRN, C.N.P., M.S.N. LAB BLO OD ADD-ON [facility] [address] [place] [address] * Hemoglobin A1c (02/18/2024 2:14 PM CDT) Hemoglobin A1c, B 4.9 4.2 - 5.6 % 02/18/2024 2:34 PM CDT MKTO Blood (Blood, Venous) 02/18/2024 2:14 PM CDT 02/18/2024 2:18 PM CDT Jazmin Coulter APRN.NMichael., M.S.N. LAB BLO OD ADD-ON Performing Organization Address City/[facility]/ZIP Co de Phone Number [facility] [address] [place] [address] * Chlamydia / Gonorrhoeae Amplified RNA (02/18/2024 1:57 PM CDT) Source Swab, Vagina 02/18/2024 10:48 PM CDT MKTO Chlamydia trachomatis amplified RNA Negative Negative 02/18/2024 10:48 PM CDT MKTO Source Swab, Vagina 02/18/2024 10:48 PM CDT MKTO Neisseria gonorrhoeae amplified RNA Negative Negative 02/18/2024 10:48 PM CDT MKTO Swab (Vagina) 02/18/2024 1:5 7 PM CDT 02/18/2024 2:30 PM CDT Yani Coulter APRNNMichael., M.S.N. LAB JUAN LUIS ROBIOLOGY - GENERAL ORDERABLES Performing Organization Address City/[facility]/ZIP Co de Phone Number [facility] [address] [place] [address], [place] [address] * ThinPrep Screen HPV Reflex (12/15/2021 11:09 AM CHILDREN'S ENTERTAINER) 12/21/2021 8:00 AM CHILDREN'S ENTERTAINER [facility] Report electronically signed by Oumar Velazquez MD I verify that I have examined all relevant slides/materials for the specimen(s) and rendered or confirmed the diagnosis. 12/21/2021 8:00 AM CHILDREN'S ENTERTAINER [facility] Gross Description Received specimen in a ThinPrep vial. 12/21/2021 8:00 AM CHILDREN'S ENTERTAINER [facility] Pap Test Source Cervical/Endocervi monique 12/21/2021 8:00 AM CHILDREN'S ENTERTAINER [facility] Clinical History first pap 12/22/19 8:00 AM CHILDREN'S ENTERTAINER [facility] Hormone Therapy/Contracep tives None/Not known 12/21/2021 8:00 AM CHILDREN'S ENTERTAINER [facility] Interpretation Cervical/Endocervi monique ??(ThinPrep): Satisfactory for Evaluation Negative for Intraepithelial Lesion or Malignancy Reactive cellular changes associated with: ? Reparative or inflammatory changes 12/21/2021 8:00 AM CHILDREN'S ENTERTAINER [facility] Varies (Cervix/Endocerv ix) 12/15/2021 11:09 AM CHILDREN'S ENTERTAINER 12/16/2021 6:54 AM CHILDREN'S ENTERTAINER Quita Junior APRN, C.N.P., M.S.N. LAB PAP PATHDX ORDERABLES Performing Organization Address City/State/[facility] Co de Phone Number [facility] [address] [place] [address], [facility] HKCY [facility] [address] [place] [address] from Last 3 Months or Most Recently Relevant to Health Maintenance Care Teams Public Health Dentist Relationship Specialty Start Date End Date Gabriella Powers M.D. [address] [place] [phone] PCP - General Family Medicine 08/21/22
--- OUTSIDE RECORDS SUMMARY | 2024-02-19 12:03 | XMS_ITS | Encounter Summary ---
Author Name Unknown Organization [facility] Address [address] [place] [address] Care Team Providers Care Multiple Tube Winding Machine Operator Name Role Phone Gabriella Powers M.D. Primary Care Provider [phone] Encounter Details Date Type Department Care Team (Late st Contact Info) Description 12/18/2023 Patient Self-Triage [facility] Symptom Diploma Pharmacy Technician, Provider Social History Tobacco Use Types Packs/Day [...] often do you attend chur ch or moravian services? Never 08/18/2022 Do you belong to any clubs o r organizations such as confucianism groups, unions, fraternal or athletic groups, or [...] Answer Date Recorded PHQ-2 Score 1 11/29/2023 [facility] - Occupational [...] your living situation today? I have a [facility] place to live 10/01/2023 Education [...] CDT Comprehensive Visit Department of Allergy in [place] [id number] [place] [address] Andrés Camacho M.D. [facility] [place] [address] Discharge Disposition: Home or Self Care documented as of this encounter Visit Diagnoses Not on filedocumented in this encounter Additional Health Concerns Assessment Noted Time PHQ-9 Depression Total Score: 5 11/29/19 24 7:55 AM PLANT MANAGER documented as of this encounter Care Teams Multiple Tube Winding Machine Operator Relationship Specialty Start Date End Date Gabriella Powers M.D. ELIZABETHI: [phone] [address] [place] [address] PCP - General Family Medicine 08/21/22 documented as of this encounter
[2024-02-19 12:14] LABS: Ur HCG Qualitative* Negative (Negative)
[2024-02-19 12:21] LABS: Appearance Urine Clear (Clear); Bilirubin Urine Negative (Negative); Color Urine Yellow (Yellow); Glucose Urine Negative (Negative); Ketones Urine Trace (Negative); Specific Gravity Urine 1.015 (1.000-1.030)
[2024-02-19 12:22] LABS: Blood Urine Negative (Negative); Leukocyte Esterase Urine Negative (Negative); Nitrite Urine Negative (Negative); Protein Urine Negative (Negative); RBC Urine 0-2 (0-2); Squamous Epithelial Cell Urine Few (None-Few); Urobilinogen Urine 0.2 (0.2-1.0); WBC Urine 0-2 (0-5)
--- NOTE | 2024-02-19 12:23 | ED_ITS ---
HPI - General Adult General Date Seen: 02/19/24 Chief complaint: Psychiatric Problem/Disorder Stated complaint: psychiatric Time Seen by Provider: 02/19/24 11:36 Source: patient and RN notes reviewed Mode of arrival: ambulatory Limitations: no limitations History of Present Illness HPI narrative: Patient is a 23-year-old woman who was dropped off here by her boyfriend. She says she is having problems with depression, paranoia and thoughts of self-harm. She notes a long history of problems with mental health. She does have a psychiatrist, apparently made an appointment but it is not until March 20. She has not really filled her psychiatrist in on how much trouble she has been having lately. She weaned herself off of Wellbutrin and Lamictal about a year ago, because she says that she felt she was in a different place in her life and thought maybe she did not need the medications anymore. Since then, she feels that she has progressively worsened. The last couple of months have been the worst. She says she and her boyfriend got in a fight last night and he told her that he did not think he could do this anymore. She does live with her boyfriend and his parents. She notes there are multiple firearms at the house which belonged to her boyfriend. She says she feels safe with her boyfriend but not with herself. Overall, she says she feels mostly passively suicidal, but she does think if she were going to kill herself she would use a gun. Her boyfriend as a result has told her he does not think she should be in the house anymore. She apparently went to [facility] earlier today, sat in the parking lot and contacted her boyfriend, had not gone in yet. She says he came and picked her up, and brought her here saying that he thought she would get better care here. He has subsequently left. She does have parents in [place], she says that they do not have good insight into what she is dealing with and she does not feel staying with him is an option. She is hoping that her boyfriend will change his mind. She denies any efforts to herself recently. She denies tobacco, alcohol or any substance use. She says she does not feel safe and thinks that she may need hospitalization. She mentions feeling paranoid, when asked for clarification of this, she says that she knows people are trying to help her, but then she starts to have thoughts like maybe everybody is out to get her. She does not describe any delusional thinking otherwise. She says her boyfriend told her that she was ?depressed and paranoid. Related Data Allergies Allergy/AdvReac Type Severity Reaction Status Date / Time No Known Drug Allergies Allergy Verified 02/19/24 11:08 Review of Systems Status of ROS: Reports: 10 or more systems reviewed and unremarkable except as noted in History and below [facility] Social History Smoking Status: Never smoker How often do you have a drink containing alcohol: never AUDIT-C Alcohol total score: 0 Non-prescribed substance use: denies use Exam Narrative: Exam Narrative: Vital signs as noted above. In general, an alert, well-appearing patient. Head: Normocephalic, atraumatic. Eyes: Pupils are equal reactive. Extraocular movements are full. Conjunctivae are normal. ENT: Mucous membranes are moist. Throat is normal. Neck: Supple without lymphadenopathy. Heart: Regular rate and rhythm. No murmur or rub. Lungs: Clear bilaterally. No increased work of breathing, crackles or wheezes. Abdomen: Soft and nontender. No organomegaly. Extremities: Well perfused. No edema. No calf tenderness. Pulses intact. Neurologic: Patient is alert and oriented to person and place. Speech is fluent. Face is symmetric. Moves all extremities equally. Affect: Normal. Skin: Warm and dry. Well perfused. Const: Vital Signs, click to edit/add: Vital Signs - 24 hr 02/19/24 11:09 Temperature 98.3 F Pulse Rate [Pulse Oximeter] 76 Respiratory Rate 20 Blood Pressure [Ri ght Upper Arm] 146/83 H Pulse Oximetry 99 Oxygen Delivery Me thod Room Air Course Course ED Course: After my conversation with patient, I did feel that she would likely need inpatient placement. She seems to have minimal coping strategies, uncertain living situation, and very minimal support at this point. She did speak with [facility] and they are in agreement that she would do best with inpatient placement. She is voluntary at this time. She is medically cleared with negative Tylenol and aspirin levels, negative alcohol, negative test, normal CBC and metabolic panel. Drug screen is pending. Labs are all unremarkable patient was cooperative here, waiting transfer to an inpatient facility, when her sister and [id number] showed up. Her sister has offered to take patient home with her. She says she works from home and is comfortable keeping an eye on the patient. Patient says she is comfortable with that plan, she felt unsafe being by herself for being at her boyfriend's house, but thinks she will be okay with her sister. I think that is a reasonable plan at this time, thus far we have not found placement for her, and both she and her sister feel that if she is having more trouble they are comfortable coming back. There are no weapons at her sister's house. She has an appointment with her psychiatrist on March 20, she is going to call and see if that could be moved up. She has an appointment with a therapist scheduled for February 25. Vital Signs Vital signs: Initial Vital Signs Temperature 98.3 F 02/19/24 11:09 Temperature Source Temporal Artery Scan 02/19/24 11:09 Pulse Rate 76 02/19/24 11:09 Respiratory Rate 20 02/19/24 11:09 Blood Pressure 146/83 H 02/19/24 11:09 Blood Pressure Mean 104 02/19/24 11:09 Pulse Oximetry 99 02/19/24 11:09 Oxygen Delivery Method Room Air 02/19/24 11:09 Vital Signs Temperature 98.3 F 02/19/24 11:09 Pulse Rate 76 02/19/24 11:09 Respiratory Rate 20 02/19/24 11:09 Blood Pressure 146/83 H 02/19/24 11:09 Pulse Oximetry 99 02/19/24 11:09 Oxygen Delivery Method Room Air 02/19/24 11:09 Temperature 98.3 F 02/19/24 11:09 Pulse Rate 76 02/19/24 11:09 Respiratory Rate 20 02/19/24 11:09 Blood Pressure 146/83 H 02/19/24 11:09 Pulse Oximetry 99 02/19/24 11:09 Oxygen Delivery Method Room Air 02/19/24 11:09 Medical Decision Making Lab Data Labs: Lab Results 04/30/24 04/30/24 04/30/24 Range/Units 12:05 12:13 14:02 WBC 7.62 (4.50-11.00) K/uL RBC 5.26 H (4.00-5.20) m/uL Hgb 15.1 (12.0-16.0) gm/dL Hct 45.4 (33.0-51.0) % MCV 86 (80-100) fL MCH 29 (26-34) pg MCHC 33 (32-36) gm/dL RDW Coeff of Nestor 12.1 (11.5-15.5) % Plt Count 318 (140-440) K/uL Neut % (Auto) 71.7 (42.0-72.0) % Lymph % (Auto) 21.0 (20-44) % Williams % (Auto) 4.1 (0.0-11.0) % Eos % (Auto) 2.6 (0.0-7.0) % Baso % (Auto) 0.5 (0.0-3.0) % Neut # (Auto) 5.46 (1.7-7.0) K/uL Lymph # (Auto) 1.60 (0.90-2.90) K/uL Williams # (Auto) 0.30 (0.00-0.90) K/UL Eos # (Auto) 0.20 (0.00-0.50) K/uL Baso # (Auto) 0.04 (0.00-0.30) K/uL Abs Immat Gran (auto) 0.01 (0.00-0.30) K/uL Imm/Tot Granulo (auto) 0.1 % Sodium 139 (135-149) mmol/L Potassium 4.0 (3.6-5.1) mmol/L Chloride 106 (96-114) mmol/L Carbon Dioxide 26 (20-32) mmol/L Anion Gap 7 (7-15) mEq/L BUN 10 (5-24) mg/dL Creatinine 0.6 (0.5-1.5) mg/dL Estimated Creat Clear 115.33 Estimated GFR 129 ml/min Glucose 89 (60-115) mg/dL Calcium 9.2 (8.4-10.6) mg/dL Urine Color (Yellow) Urine Appearance (Clear) Urine pH (5.0-8.5) Ur Specific [place] (1.000-1.030) Urine Protein (Negative) Urine Glucose (UA) (Negative) Urine Ketones (Negative) Urine Blood (Negative) Urine Nitrite (Negative) Urine Bilirubin (Negative) Urine Urobilinogen (0.2-1.0) Ur Leukocyte Esterase (Negative) Urine RBC (0-2) Urine WBC (0-5) Ur Squamous Epith Cells (None-Few) Urine Bacteria (None) Urine HCG, Qual (Negative) Salicylates < 1.0 L (1.0-10) mg/dL Urine Opiates Screen Negative (Negative) Ur Oxycodone Screen Negative (Negative) Urine Methadone Screen Negative (Negative) Acetaminophen < 10.0 L (10.0-30.0) ug/mL Ur Barbiturates Screen Negative (Negative) U Tricyclic Antidepress Negative (Negative) Ur Phencyclidine Scrn Negative (Negative) Ur Amphetamines Screen Negative (Negative) U Methamphetamines Scrn Negative (Negative) U Benzodiazepines Scrn Negative (Negative) Urine Cocaine Screen Negative (Negative) U Marijuana (THC) Screen Negative (Negative) Ur Drug Screen Comment See Note SARS-CoV-2 (PCR) Negative SARS-CoV-2 (Negative) 02/19/24 Range/Units Unknown WBC (4.50-11.00) K/uL RBC (4.00-5.20) m/uL Hgb (12.0-16.0) gm/dL Hct (33.0-51.0) % MCV (80-100) fL MCH (26-34) pg MCHC (32-36) gm/dL RDW Coeff of Nestor (11.5-15.5) % Plt Count (140-440) K/uL Neut % (Auto) (42.0-72.0) % Lymph % (Auto) (20-44) % Williams % (Auto) (0.0-11.0) % Eos % (Auto) (0.0-7.0) % Baso % (Auto) (0.0-3.0) % Neut # (Auto) (1.7-7.0) K/uL Lymph # (Auto) (0.90-2.90) K/uL Williams # (Auto) (0.00-0.90) K/UL Eos # (Auto) (0.00-0.50) K/uL Baso # (Auto) (0.00-0.30) K/uL Abs Immat Gran (auto) (0.00-0.30) K/uL Imm/Tot Granulo (auto) % Sodium (135-149) mmol/L Potassium (3.6-5.1) mmol/L Chloride (96-114) mmol/L Carbon Dioxide (20-32) mmol/L Anion Gap (7-15) mEq/L BUN (5-24) mg/dL Creatinine (0.5-1.5) mg/dL Estimated Creat Clear Estimated GFR ml/min Glucose (60-115) mg/dL Calcium (8.4-10.6) mg/dL Urine Color Yellow (Yellow) Urine Appearance Clear (Clear) Urine pH 7.0 (5.0-8.5) Ur Specific [place] 1.015 (1.000-1.030) Urine Protein Negative (Negative) Urine Glucose (UA) Negative (Negative) Urine Ketones Trace A (Negative) Urine Blood Negative (Negative) Urine Nitrite Negative (Negative) Urine Bilirubin Negative (Negative) Urine Urobilinogen 0.2 (0.2-1.0) Ur Leukocyte Esterase Negative (Negative) Urine RBC 0-2 (0-2) Urine WBC 0-2 (0-5) Ur Squamous Epith Cells Few (None-Few) Urine Bacteria None (None) Urine HCG, Qual Negative (Negative) Salicylates (1.0-10) mg/dL Urine Opiates Screen (Negative) Ur Oxycodone Screen (Negative) Urine Methadone Screen (Negative) Acetaminophen (10.0-30.0) ug/mL Ur Barbiturates Screen (Negative) U Tricyclic Antidepress (Negative) Ur Phencyclidine Scrn (Negative) Ur Amphetamines Screen (Negative) U Methamphetamines Scrn (Negative) U Benzodiazepines Scrn (Negative) Urine Cocaine Screen (Negative) U Marijuana (THC) Screen (Negative) Ur Drug Screen Comment SARS-CoV-2 (PCR) (Negative) Discharge Plan Discharge Clinical Impression: Depression Patient Disposition: Home w/ Parent or Adult Condition: Stable Instructions: Depression (ED) Additional Instructions: Return any time if you do not feel safe with outpatient management. Follow up with therapist and psychiatrist as planned. Follow Up/Referrals: Provider,Not a Local [Primary Care Provider] - Stand Alone Forms: [employer] Info Instructions
[2024-02-19 12:29] LABS: Basophils Absolute Auto 0.04 K/uL (0.00-0.30); Basophils Percent Auto 0.5 % (0.0-3.0); Eosinophils Percent Auto 2.6 % (0.0-7.0); Hematocrit 45.4 % (33.0-51.0); Hemoglobin* 15.1 gm/dL (12.0-16.0); Immature Granulocytes Abs Auto 0.01 K/uL (0.00-0.30); Immature Granulocytes Pct Auto 0.1 %; Mean Corpuscular HGB Conc 33 gm/dL (32-36); Mean Corpuscular Hemoglobin 29 pg (26-34); Mean Corpuscular Volume 86 fL (80-100); Monocytes Percent Auto 4.1 % (0.0-11.0); Neutrophils Absolute Auto 5.46 K/uL (1.7-7.0); Neutrophils Percent Auto 71.7 % (42.0-72.0); Platelet Count* 318 K/uL (140-440); RDW Coefficient of Variation % 12.1 % (11.5-15.5); Red Blood Count 5.26 m/uL (4.00-5.20); White Blood Count* 7.62 K/uL (4.50-11.00)
[2024-02-19 12:34] LABS: Chloride* 106 mmol/L (96-114); Sodium* 139 mmol/L (135-149)
[2024-02-19 12:37] LABS: Anion Gap 7 mEq/L (7-15); Blood Urea Nitrogen* 10 mg/dL (5-24); Calcium* 9.2 mg/dL (8.4-10.6); Carbon Dioxide* 26 mmol/L (20-32); Creatinine* 0.6 mg/dL (0.5-1.5); Est. Creatinine Clearance* 115.33; Estimated Glomerular Filt Rate 129 ml/min; Glucose* 89 mg/dL (60-115)
[2024-02-19 12:39] LABS: Acetaminophen* < 10.0 ug/mL (10.0-30.0); Salicylate* < 1.0 mg/dL (1.0-10)
[2024-02-19 13:39] LABS: Slide Review Reflex No
[2024-02-19 14:18] LABS: Amphetamine Screen Urine Negative (Negative); Barbiturate Screen Urine Negative (Negative); Benzodiazepines Screen Urine Negative (Negative); Cannabinoid Screen Urine Negative (Negative); Cocaine Screen Urine Negative (Negative); Methadone Screen Urine Negative (Negative); Methamphetamines Screen Urine Negative (Negative); Opiate Screen Urine Negative (Negative); Oxycodone Screen Urine Negative (Negative); Phencyclidine Screen Urine Negative (Negative); Tricyclic Antidepressant Urine Negative (Negative)
[2024-02-19 14:49] LABS: SARS PCR* Negative SARS-CoV-2 (Negative)
[2024-02-19 21:44] LABS: Thyroid Stimulating Hormone* 0.843 uIU/mL (0.270-4.20)
== END 2024-02-19 15:48 | disposition home or self-care (01) ==
PROVIDERS: Emergency Provider Emergency Medicine
DX: F32.A Depression, unspecified (principal)
CPT/HCPCS: 36415; 80048; 80143; 80179; 80306; 81001; 81025; 84443; 85025; 87635; 99283; 99284